=== PATIENT | male | born 1935 | race Hispanic/Latino ===

== ENCOUNTER 2018-04-27 01:09 | Emergency (ER) | payer MEDICARE ==
[~2018-04-27] VITALS: Ht 165.1 cm; Wt 80.5 kg
--- OUTSIDE RECORDS SUMMARY | 2018-04-27 01:11 | XMS REPORT | Clinical Summary ---
Author Author [facility] Address Unknown Phone Unavailable Care Team Providers [facility] Manager Name Role Phone Kelton Fonseca MD PCP Allergies No Known Allergies Medications End Date Status Medication Sig Dispensed Refills Start Date Active clopidogrel (PLAVIX) 75 Take 75 mg by 0 mg tablet mouth daily. Active tamsulosin (FLOMAX) 0.4 Take 0.4 mg 0 mg capsule,extended by mouth release 24hr daily. Active furosemide (LASIX) 20 mg Take 20 mg by 0 tablet mouth 2 (two) times a day. Active quinapril (ACCUPRIL) 10 Take 10 mg by 0 MG tablet mouth nightly. Active metFORMIN (GLUCOPHAGE) Take 500 mg 0 500 mg tablet by mouth 2 (two) times a day with meals. Active simvastatin (ZOCOR) 40 MG Take 40 mg by 0 tablet mouth nightly. Active metoprolol succinate XL Take 50 mg by 0 (TOPROL-XL) 50 mg 24 hr mouth daily. tablet 05/12/2017 nitroglycerin (NITROSTAT) Place 1 90 tablet 12 0.4 MG SL tablet tablet (0.4 8 mg total) under the tongue every 5 (five) minutes as needed for chest pain for up to 30 days. Active Problems Problem Noted Date Chest pain, rule out acute myocardial infarction 04/12/2017 Social History Date Tobacco Use Types Packs/Day Years Used Never Smoker Smokeless Tobacco: Never Used Alcohol Use Drinks/Week oz/Week Comments No Sex Assigned at Date Recorded Not on file Industry Job Start Date Occupation Not on file Not on file Not on file Travel End Travel History Travel Start No recent travel history available. Last Filed Vital Signs Not on file Plan of Treatment Health Maintenance Due Date Last Done Comments SHINGLES VACCINES (#1) 1986 65+ PNEUMOCOCCAL VACCINE 2001 (1 of 2 - PCV13) PNEUMOCOCCAL 2001 POLYSACCHARIDE VACCINE AGE 65 AND OVER INFLUENZA VACCINE 10/01/2017 Results Not on fileafter 04/26/2017 Insurance Payer Benefit Subscriber ID Type Phone Address Plan / Group [employer] xxxxxxxxx O [facility] Advance Directives Patient has advance care planning documents on file. For more information, rafita hines contact: Julio Topete [phone] [place] [address]
--- OUTSIDE RECORDS SUMMARY | 2018-04-27 01:11 | XMS REPORT ---
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 Allergies, Adverse Reactions, Alerts Allergy Name Allergy Type Status Severity Reaction(s) Onset Date Inactive Date Treating Clinician Comments No Known Allergies DA Active U 2017-11-15 00:00:00 No Known Allergies DA Active U 2014-12-16 00:00:00 Medications This patient has no known medications.
[2018-04-27 03:00] VITALS: BP 144/80
== END 2018-04-27 01:59 | disposition home or self-care (01) ==
LOC: FSED 01:09
DX: M62.81 Muscle weakness (generalized) (principal); I10 Essential (primary) hypertension; I25.10 Atherosclerotic heart disease of native coronary artery without angina pectoris; Z95.1 Presence of aortocoronary bypass graft; F03.90 Unspecified dementia, unspecified severity, without behavioral disturbance, psychotic disturbance, mood disturbance, and anxiety
CPT/HCPCS: 99282